=== PATIENT | male | born 1955 | race Caucasian/White ===

== ENCOUNTER → 2020-01-29 | Outpatient (CLI) | payer BC ==
--- NOTE | 2020-01-29 16:00 | CTL ---
EXAMINATION TYPE: CT Low Dose Lung DATE OF EXAM ORDERED: 01/29/2020 HISTORY: . Lung cancer screening CT DLP: 83 mGycm Automated exposure control for dose reduction was used. SCREENING VISIT: Initial COMPARISON: None TECHNIQUE: Low dose computed tomography scan was performed through the chest at 1 mm thick sections a nd reconstructed images in the coronal plane at [address] DIAGNOSTIC QUALITY: Limited, but interpretable FINDINGS: LUNG NODULES: Present, detailed below: There is a 0.3 cm peripheral based nodule within the left upper lung field. Series 5 image 74 LUNGS: COPD: Severity: None Fibrosis: Severity: None Lymph nodes: None Other findings: RIGHT PLEURAL SPACE: Effusion: None Calcification: None Thickening: None Pneumothorax: None LEFT PLEURAL SPACE: Effusion: None Calcification: None Thickening: None Pneumothorax: None HEART: Heart Size: Normal Coronary calcification: Mild Pericardial effusion: None OTHER FINDINGS: Upper abdomen: Normal Bony thorax: Normal Supraclavicular region: Normal Other: Ascending thoracic aorta at the level the main pulmonary artery is 3.4 cm. The main pulmonary artery at the bifurcation is 2.2 cm. IMPRESSION: 1. Benign findings FOLLOW UP CT CHEST RECOMMENDATION: Follow-up low-dose CT chest [address] LUNG RAD: 2
== END | disposition home or self-care (01) ==
LOC: RADCTMAIN 10:32
PROVIDERS: ATTEND Family Medicine
DX: Z12.2 Encounter for screening for malignant neoplasm of respiratory organs (principal); F17.210 Nicotine dependence, cigarettes, uncomplicated

== ENCOUNTER → 2020-04-04 | Outpatient (CLI) | payer BC ==
--- NOTE | 2020-04-04 22:19 | MR ---
EXAMINATION TYPE: MR margaret/lsisreal wo con DATE OF EXAM: 04/04/2020 COMPARISON: Low-dose lung screening CT January 29, 2020 HISTORY: Mid and lower back pain, BLE radic TECHNIQUE: Multiplanar, multisequence imaging of the thoracic and lumbar spine are performed without IV contrast. FINDINGS: T-SPINE: FINDINGS: Spinal cord shows normal course, caliber, and signal as it courses the thoracic spine. Meghan tebral body heights remain satisfactory. There is dextroconvex scoliosis centered in the upper lumbar spine redemonstrated. Disc space heights fairly well maintained. Bone marrow signal intensity is pre served. Mild to moderate multilevel anterior spurring. Small posterior disc herniation effaces anteri or thecal sac at T8-T9 and T9-T10 levels along with T11-T12 and T12-L1 levels. Bone marrow signal int ensity is preserved. Review of the axial images show additional left paracentral disc protrusion effacing the anterolatera l thecal sac at T7-T8 level image 17 series 601. There is also mild to moderate facet arthropathy an d ligamentum flavum hypertrophy at T11-T12 and T12-L1 levels. IMPRESSION: Scoliotic curvature with mild to moderate multilevel degenerative changes mid to lower th oracic spine as detailed above. LUMBAR SPINE: Sagittal images of the lumbar spine show vertebral body heights to appear satisfactory. There is reac tive levoconvex scoliosis centered at lumbosacral junction. Alignment is straightened on sagittal mike ges. Slight grade 1 retrolisthesis L2 on L3 and L3 on L4. Multilevel disc desiccation with mild to mo derate multilevel disc space narrowing. [id number]-[id number] multilevel anterior spurring The conus medu llaris is somewhat high in position ending at superior T12 levels. Some heterogeneous motor type II e ndplate changes involving the right L5-S1 level. Axial images at T12-L1 shows left paracentral disc protrusion effacing and T12 thecal sac and mild-to -moderate facet degenerative changes and ligamentum flavum hypertrophy bilaterally. Axial images at L1-L2 level [id number] broad disc bulge effacing anterolateral thecal sac with mild left-sided facet arthropathy causing [id number]-[id number] left-sided neural foraminal narrowing. Axial images at L2-L3 level show moderate broad disc bulge with left paracentral disc protrusion comp onent and whoq-cl-lwhbbtty facet degenerative changes and ligament flavum hypertrophy bilaterally. Th ere is effacement of the left anterolateral thecal sac and posterior lateral thecal sac bilaterally, there is moderate to severe left and mild right-sided neural foraminal narrowing. Axial images at L3-L4 level show spondylolisthesis with moderate broad-based disc protrusion and mild to moderate right greater than left facet arthropathy. There is moderate right without significant l eft-sided neural foraminal narrowing. Axial images at L4-L5 level show mild to moderate right greater than left facet arthropathy. There is mild broad disc bulge with annular tear. There is right foraminal disc protrusion component. Patent left-sided neural foramina. Moderate right-sided neural foraminal narrowing. Axial images at L5-S1 level show mild/moderate facet degenerative changes bilaterally. There is right paracentral spur disc complex effacing anterolateral thecal sac. There is moderate bilateral neural foraminal narrowing. There is asymmetric mild to moderate right paraspinal muscular atrophy particularly lateral muscles n oted. IMPRESSION: Scoliosis and multilevel degenerative changes as detailed above.
== END | disposition home or self-care (01) ==
LOC: RADMRIMAIN 09:39
PROVIDERS: ATTEND Nurse Practitioner Family
DX: M47.814 Spondylosis without myelopathy or radiculopathy, thoracic region (principal); M47.816 Spondylosis without myelopathy or radiculopathy, lumbar region; M41.84 Other forms of scoliosis, thoracic region; M41.86 Other forms of scoliosis, lumbar region
CPT/HCPCS: 72146; 72148

== ENCOUNTER → 2020-05-24 | Outpatient (CLI) | payer BC ==
--- NOTE | 2020-05-24 18:08 | MR ---
EXAMINATION TYPE: MR knee RT wo con DATE OF EXAM: 05/24/2020 COMPARISON: No radiographic correlation available HISTORY: 64-year-old male M25.561, Right knee pain and swelling for a few years. TECHNIQUE: Multiplanar, multisequence imaging of the right knee is performed without IV contrast. FINDINGS: ACL, PCL, MCL, and LCL complex are intact. Trace fluid seen along the popliteus tendon sheath. There is complex multidirectional tear involving the posterior horn and body of the medial meniscus w ith mild extrusion of the meniscal body. Focal subchondral cystic change and mild marrow edema along the peripheral lip of the medial tibial p lateau suggesting focal severe osteoarthritic change. Otherwise, there is mild diffuse thinning of ti bial articular cartilage in the medial compartment. Large horizontal cleavage tear involving the body of the lateral meniscus with tear extending into emily th the anterior and posterior horns. There is a complex tear meniscal cyst along the lateral peripher al margin measuring 1.6 x 0.6 cm on coronal image. Mild diffuse thinning of lateral compartment artic ular cartilage. Mild thinning of patellofemoral compartment articular cartilage without any high-grade chondral defec t seen. Mild edema within the suprapatellar fat pad. Trace physiologic joint fluid. A small Villalobos cyst is demonstrated. Extensor mechanism is intact. Trace effusion thickening the prepatellar bursa by 3 mm. Normal popliteal artery anatomy. Mild diminished muscle bulk. No suspicious bone marrow replacement o therwise seen. IMPRESSION: 1. Large horizontal cleavage tear extending throughout the lateral meniscus. 2. Complex multidirectional tear involving the posterior horn and body of the medial meniscus. There is an associated focal 1.8 x 1.1 cm area of severe degenerative change involving the peripheral lip o f the medial tibial plateau with underlying reactive marrow signal changes. 3. Trace prepatellar bursitis thickened by 3 mm. 4. Mild edema within the suprapatellar fat pad may be seen with fat pad impingement syndrome. Clinica lly correlate. 5. Small Villalboos's cyst.
== END | disposition home or self-care (01) ==
LOC: RADMRIMAIN 10:48
PROVIDERS: ATTEND Nurse Practitioner Family
DX: S83.281A Other tear of lateral meniscus, current injury, right knee, initial encounter (principal); S83.241A Other tear of medial meniscus, current injury, right knee, initial encounter; M71.21 Synovial cyst of popliteal space [Baker], right knee; M17.11 Unilateral primary osteoarthritis, right knee

== ENCOUNTER 2020-06-01 09:24 | Day surgery (SDC) | payer BC ==
[2020-05-30 15:02] VITALS: BMI 25.2
[~2020-06-01 09:24] MED LIST: LACTATED RINGERS 1,000 ML IV SCH; LIDOCAINE 1% (10MG/ML) FOR IV START INTRADERMA PRN
[2020-06-01 10:27] VITALS: TEMP 98
[2020-06-01] MEDS ORDERED: PROPOFOL 10 MG/ML 20 ML VIAL IV ONE (10:36)
--- NOTE | 2020-06-01 10:55 | P.PCN ---
Date of Procedure: 06/01/20 Procedure(s) Performed: BRIEF HISTORY: Patient is a 64-year-old pleasant white male scheduled for an elective colonoscopy as a part of evaluation of positive cologuard. PROCEDURE PERFORMED: Colonoscopy. PREOPERATIVE DIAGNOSIS: Positive cologuard. IV sedation per Anesthesia. PROCEDURE: After informed consent was obtained, the patient, was brought into the endoscopy unit. IV sedation was administered by Anesthesia under continuous monitoring. Digital rectal examination was normal. Initially the Olympus CF-160 flexible video colonoscope was then inserted in the rectum, gradually advanced into the cecum without any difficulty. Careful examination was performed as the scope was gradually being withdrawn. Ileocecal valve and the appendiceal orifice were visualized and appeared normal. Prep was excellent. Mucosa of the cecum, ascending colon, transverse colon, descending colon, sigmoid colon, and rectum appeared normal. Scattered sigmoid diverticulosis. Retroflexion was performed in the rectum and no lesions were seen. The patient tolerated the procedure well. IMPRESSION: Normal-appearing colon from rectum to cecum with no evidence of colorectal neoplasia . Scattered sigmoid diverticulosis. RECOMMENDATIONS: Findings of this examination were discussed with the patient well as his family.. He was advised to have a repeat screening colonoscopy in 10 years.
[2020-06-01 11:14] VITALS: RESP 12
[2020-06-01 11:22] VITALS: BP 108/65; PULSE 81
== END 2020-06-01 11:40 | disposition home or self-care (01) ==
LOC: ORWHC2ENDO 09:24
PROVIDERS: ATTEND Internal Medicine Gastroenterology
DX: K57.30 Diverticulosis of large intestine without perforation or abscess without bleeding (principal); R19.5 Other fecal abnormalities; F17.210 Nicotine dependence, cigarettes, uncomplicated; K21.9 Gastro-esophageal reflux disease without esophagitis; Z98.890 Other specified postprocedural states; K00.0 Anodontia
CPT/HCPCS: 45378; J2704

== ENCOUNTER → 2020-07-15 | Outpatient (CLI) | payer BC ==
[2020-07-15 12:12] LABS: Basophils # (A) 0.1 k/uL (0-0.2); Basophils % (A) 1 %; Eosinophils # (A) 0.1 k/uL (0-0.7); Eosinophils % (A) 1 %; HCT 46.9 % (39.0-53.0); HGB 15.8 gm/dL (13.0-17.5); Lymphocytes # (A) 2.2 k/uL (1.0-4.8); Lymphocytes % (A) 30 %; MCH 31.5 pg (25.0-35.0); MCHC 33.8 g/dL (31.0-37.0); MCV 93.1 fL (80.0-100.0); Mean Platelet Volume 6.5; Monocytes # (A) 0.4 k/uL (0-1.0); Monocytes % (A) 5 %; Neutrophils # (A) 4.6 k/uL (1.3-7.7); Neutrophils % (A) 62 %; Platelet Count 270 k/uL (150-450); RBC 5.03 m/uL (4.30-5.90); RDW 12.7 % (11.5-15.5); WBC 7.4 k/uL (3.8-10.6)
[2020-07-15 12:15] LABS: Potassium 4.9 mmol/L (3.5-5.1)
== END | disposition home or self-care (01) ==
LOC: LABPAT 10:39
PROVIDERS: ATTEND Orthopaedic Surgery
DX: Z01.818 Encounter for other preprocedural examination (principal); M23.91 Unspecified internal derangement of right knee
CPT/HCPCS: 36415; 80051; 85025; 93005

== ENCOUNTER 2020-08-03 10:08 | Day surgery (SDC) | payer BC ==
[2020-08-02 09:16] VITALS: BMI 25.2
--- NOTE | 2020-08-02 14:47 | HP ---
HISTORY AND PHYSICAL REASON FOR ADMISSION: Surgery 08/03/2020 HISTORY OF PRESENT ILLNESS: Marty Marquez is a 64-year-old gentleman seen with progressive right knee pain. We discussed options for treatment. He elected to proceed with arthroscopy. Consent was obtained. PAST MEDICAL HISTORY: Noncontributory. PAST SURGICAL HISTORY: Herniorrhaphy. DAILY MEDICATIONS: None. ALLERGIES: NONE REPORTED. SOCIAL HISTORY: Smokes 1 pack of cigarettes daily. PHYSICAL EVALUATION OF THE RIGHT KNEE: Range of motion zero to 130. Mild effusion. Tenderness along the medial and lateral joint lines. Positive medial Annabella's. Positive lateral Annabella's. Ligaments stable. Hip rotation without pain. Distal neurovascular exam intact. RADIOGRAPHS: Right knee radiographs reveal some mild osteoarthritis. MRI of the right knee revealed complex meniscal tears. IMPRESSION: Internal derangement of right knee with meniscal tears. PLAN: Right knee arthroscopy with partial meniscectomy and debridement. Surgery scheduled for 08/03/2020. MMODL / IJN: [id number] /
[2020-08-03] MEDS ORDERED: ONDANSETRON 4 MG/2 ML VIAL ONE ×2 (10:58→14:34)
[2020-08-03] MEDS ORDERED: LACTATED RINGERS 1,000 ML IV ONE (11:00)
[2020-08-03] MEDS ORDERED: ONDANSETRON 4 MG/2 ML VIAL IVP ONE ×2 (11:09→14:37)
[2020-08-03] MEDS ORDERED: DEXAMETHASONE SOD PHOSPHATE 4 MG/ML 1 ML VIAL IVP ONE (11:09)
[2020-08-03] MEDS ORDERED: NEOSTIGMINE 1 MG/ML 10 ML VIAL ONE (11:15)
[2020-08-03] MEDS ORDERED: MIDAZOLAM 2 MG/2 ML VIAL ONE (11:15)
[2020-08-03] MEDS ORDERED: GLYCOPYRROLATE 0.2 MG/ML 2 ML VIAL ONE (11:15)
[2020-08-03] MEDS ORDERED: HYDROmorphone (PF) 1 MG/ML ONE (11:15)
[2020-08-03] MEDS ORDERED: SUCCINYLCHOLINE CHLORIDE 100 MG/5 ML SYR IV ONE (11:15)
[2020-08-03] MEDS ORDERED: ROCURONIUM 10 MG/ML (5 ML VIAL) IV ONE (11:15)
[2020-08-03] MEDS ORDERED: fentaNYL (PF) 50 MCG/ML 2 ML AMP ONE (11:15)
[2020-08-03] MEDS ORDERED: PROPOFOL 10 MG/ML 20 ML VIAL IV ONE (11:15)
[2020-08-03] MEDS ORDERED: BUPIVACAINE (PF) 0.25% 30 ML VIAL INTRAARTIC ONE (11:20)
--- NOTE | 2020-08-03 12:31 | P.OP ---
Date of Procedure: 08/03/20 Preoperative Diagnosis: Internal derangement right knee Postoperative Diagnosis: 1. Tear medial and lateral meniscus right knee 2. Reactive synovitis medial, lateral and suprapatellar compartments right knee Procedure(s) Performed: 1. Arthroscopic partial medial and lateral meniscectomy right knee 2. Arthroscopic partial synovectomy medial, lateral and suprapatellar compartments right knee Anesthesia: PRABHAKARA, local Surgeon: Farhat Wilson Estimated Blood Loss (ml): 8 Pathology: none sent Condition: stable Disposition: PACU Indications for Procedure: 64-year-old patient seen with progressive right knee pain. After treatment options were discussed, he elected to proceed with arthroscopy. Operative Findings: see description of procedure Description of Procedure: Patient was taken to the operative suite. Patient underwent a general anesthetic by the department of anesthesia. Patient was given preoperative antibiotics. The right lower extremity was placed in a well-padded arthroscopic leg perry. The right leg was prepped and draped in the normal sterile orthopedic fashion. A lateral parapatellar and suprapatellar incision was made. Trochars were inserted. Arthroscopy was initiated. Suprapatellar pouch revealed diffuse thick reactive synovitis. The patellofemoral joint appeared to articulate congruently. There was grade 1 chondromalacia of the patella. The scope was guided into the medial gutter. No loose bodies or plica were identified. The scope was then guided into the medial compartment. A medial parapatellar incision was made. Trocar inserted followed by probe. There was a complex tear involving the posterior horn of the medial meniscus. There was thick reactive synovitis anteriorly. There were grade 1 chondromalacia changes about the medial compartment. I performed a partial medial meniscectomy getting down to stable meniscal tissue. I performed a partial synovectomy decompressing reactive synovitis anteriorly. The residual meniscus was stable. There was good decompression of the synovitis. The scope and probe were then guided into the intercondylar notch. Cruciates were identified, probed and found to be stable. The scope and probe were then guided into lateral compartment. There was a complex tear involving the anterior mid body and posterior horn lateral meniscus. There was thick reactive synovitis anteriorly. I performed a partial lateral meniscectomy getting down to stable meniscal tissue. I performed a partial synovectomy decompressing the reactive synovitis. The residual meniscus was stable. There was good decompression of the synovitis. The scope was in guided back into the suprapatellar compartment. I introduced a motorized shaver into the super compartment. I debrided some piecemeal fragments of meniscus I encountered. I performed a partial synovectomy. The shaver was removed. There was good decompression of the synovitis. I took one more look on the entire knee, no residual debris.Instruments were now removed from the joint. The joint was infiltrated with .25% Marcaine. Steri-Strips were applied to the portal sites. Sterile dressings were applied. The patient was placed into a RODERICK hose. No tourniquet was utilized. The patient was awakened, transferred to a bed and taken to recovery stable satisfactory condition.
[2020-08-03 12:32] VITALS: TEMP 96.9
[2020-08-03] MEDS ORDERED: HYDROmorphone 0.5 MG/0.5 ML SYRINGE IVP ONE ×2 (12:35→12:44)
[2020-08-03] MEDS ORDERED: HYDROcodone/APAP 5-325MG 1 EACH TAB ONE (13:35)
[2020-08-03] MEDS ORDERED: HYDROcodone/APAP 5-325MG 1 EACH TAB PO ONE (13:38)
[2020-08-03 13:45] VITALS: RESP 16
[2020-08-03 14:19] VITALS: BP 127/73; PULSE 59
== END 2020-08-03 14:55 | disposition home or self-care (01) ==
LOC: OR 10:08
PROVIDERS: ATTEND Orthopaedic Surgery
DX: M23.221 Derangement of posterior horn of medial meniscus due to old tear or injury, right knee (principal); M23.251 Derangement of posterior horn of lateral meniscus due to old tear or injury, right knee; M22.41 Chondromalacia patellae, right knee; M65.861 Other synovitis and tenosynovitis, right lower leg; Z98.890 Other specified postprocedural states; F17.210 Nicotine dependence, cigarettes, uncomplicated
CPT/HCPCS: 29880; J2250; J1100; J2710; J0690; J2405; J3010; J1170 ×2; J0330; J2704

== ENCOUNTER → 2020-08-15 | Outpatient (CLI) | payer BC ==
--- NOTE | 2020-08-15 11:27 | XR ---
EXAMINATION TYPE: XR scoliosis survey DATE OF EXAM: 08/15/2020 COMPARISON: NONE HISTORY: Scoliosis TECHNIQUE: 4 imaged scoliosis series with frontal and lateral views of the thoracolumbar spine. FINDINGS: Vertebral body heights are preserved. There is dextroscoliosis of the thoracolumbar spine. There is m ultilevel endplate sclerosis and osteophytosis of the thoracolumbar spine with lower lumbar facet art hropathy of the lumbar spine. IMPRESSION: Dextroscoliosis with multilevel disc disease and osteoarthritic changes.
== END | disposition home or self-care (01) ==
LOC: RADXRMAIN 10:24
PROVIDERS: ATTEND Orthopaedic Surgery
DX: M41.9 Scoliosis, unspecified (principal)
CPT/HCPCS: 72082

== ENCOUNTER 2020-09-06 11:07 | Day surgery (SDC) | payer BC ==
[2020-09-05 11:32] VITALS: BMI 25.7
[~2020-09-06 11:07] MED LIST changes: -LIDOCAINE 1% (10MG/ML) FOR IV START INTRADERMA PRN
[2020-09-06 11:32] VITALS: RESP 16; TEMP 97.3
[2020-09-06] MEDS ORDERED: LIDOCAINE 1% (10MG/ML) FOR IV START INTRADERMA ONE (11:40)
[2020-09-06] MEDS ORDERED: TRIAMCINOLONE ACETONIDE 40 MG/ML 1 ML VIAL ONE (12:25)
[2020-09-06] MEDS ORDERED: fentaNYL (PF) 50 MCG/ML 2 ML AMP ONE (12:25)
[2020-09-06] MEDS ORDERED: IOPAMIDOL M200 10 ML VIAL ONE (12:25)
[2020-09-06] MEDS ORDERED: MIDAZOLAM 2 MG/2 ML VIAL ONE (12:25)
[2020-09-06] MEDS ORDERED: ROPIVACAINE 5MG/ML 20ML VIAL ONE (12:25)
--- NOTE | 2020-09-06 12:40 | P.PCN ---
Date of Procedure: 09/06/20 Surgeon: Rama Parisi Pathology: none sent Condition: stable Disposition: PACU Description of Procedure: PREOPERATIVE DIAGNOSIS: 1-lumbar stenosis 2- Lumber Degenerative Disc Diseases. POSTOPERATIVE DIAGNOSIS: 1-lumbar stenosis 2-Lumbar Degenerative Disc Diseases PROCEDURE 1. Lumbar epidural steroid injection under fluoroscopic guidance at the L2-3 level in the left paramedian approach . 2. Lumbar epidurogram. ANESTHESIA: Local with 1% lidocaine; and IV moderate conscious sedation with Versed and fentanyl EBL: Minimal PROCEDURE INDICATION: The patient with low back pain and radiculitis symptoms unresponsive to conservative treatment. Fluoroscopy was used to optimize visualization of the needle placement and to maximize safety. PROCEDURE DESCRIPTION / TECHNIQUE: The patient was seen and identified in the preoperative area. Risks, benefits, complications including but not limited to infections ,bleeding ,allergic reaction to the medications ,nerve damage and not complete pain relief , and alternatives were discussed with the patient. The patient agreed to proceed with the procedure and signed the consent. IV was started, and vital signs were stable. Patient was taken to the OR and time out was completed. The patient was placed in the prone position on procedure table and a pillow was placed under the abdomen to reduce lumbar lordosis. The lumbosacral area was prepped and draped in the usual sterile fashion with ChloraPrep.Patient was closely monitored during the procedure. Conscious sedation was used during the procedure to decrease patients anxiety. Vital signs were monitered during the entire procedure. Using anterior-posterior fluoroscopy, the L2-3 interlaminar space was identified and the skin over this site was marked and then infiltrated with 1% lidocaine subcutaneously. Subsequently, a 20-gauge Tuohy epidural needle was inserted and advanced toward the epidural space using the Loss of resistance to air technique and guided by AP and lateral fluoroscopy. The correct needle position in the epidural space was verified with the injection of 1 mL of the water soluble contrast dye Omnipaque 180 contrast and observing an excellent epiduro gram with the epidural spread of the dye, after negative aspiration for blood and CSF and in the absence of paresthesias. Again after negative aspiration, a 8 ml mixture containing 80 mg of Kenalog and 5 ml of preservative free Normal Saline, and 2 ml of preservative free ropivacaine 0.5% solution was injected and a washout of epidurogram was seen. Needle was withdrawn intact, skin was cleansed, and bandages were applied. patient tolerated procedure well and was transferred to PACU in stable condition.A copy of the needle placement picture was saved to the fluoroscopy machine. The patient has severe thoracolumbar scoliosis. COMPLICATIONS: None DISPOSITION / PLANS: The patient was placed in a supine position and transferred to the recovery area in a stable condition for observation. There was no evidence of lower extremity motor or sensory deficit after the procedure. Patient was discharged from the recovery room after meeting discharge criteria. Home discharge instructions were given to the patient by the staff. The patient was reexamined prior to discharge. The patient will schedule a follow up in the clinic in 2-4 weeks.
[2020-09-06] MEDS ORDERED: IV FLUID CONTINUATION 1,000 ML IV ONE (12:43)
[2020-09-06 12:47] VITALS: BP 136/35; PULSE 55
--- NOTE | 2020-09-06 17:03 | FL ---
Fluoroscopy HISTORY: Pain 4 seconds fluoroscopy time supplied to the referring clinician. 2 intraoperative C-arm images docume nt the procedure. See dictated report from anesthesia.
== END 2020-09-06 13:17 | disposition home or self-care (01) ==
LOC: ORPAIN 11:07
PROVIDERS: ATTEND Anesthesiology
DX: M48.061 Spinal stenosis, lumbar region without neurogenic claudication (principal); M51.16 Intervertebral disc disorders with radiculopathy, lumbar region; F17.200 Nicotine dependence, unspecified, uncomplicated; G47.33 Obstructive sleep apnea (adult) (pediatric)
CPT/HCPCS: 62323; J2250; J3301; J3010; Q9966; J2795; 99152

== ENCOUNTER 2020-10-06 08:24 | Day surgery (SDC) | payer BC ==
[2020-10-05 09:46] VITALS: BMI 25.1
[2020-10-06 08:55] VITALS: TEMP 97.8
[2020-10-06] MEDS ORDERED: LACTATED RINGERS 1,000 ML IV ONE (08:55)
[2020-10-06] MEDS ORDERED: methylPREDNISolone ACETATE 40 MG/ML 1 ML VIAL ONE (09:38)
[2020-10-06] MEDS ORDERED: fentaNYL (PF) 50 MCG/ML 2 ML AMP ONE (09:38)
[2020-10-06] MEDS ORDERED: IOPAMIDOL M200 10 ML VIAL ONE (09:38)
[2020-10-06] MEDS ORDERED: MIDAZOLAM 2 MG/2 ML VIAL ONE (09:38)
--- NOTE | 2020-10-06 09:49 | P.PCN ---
Date of Procedure: 10/06/20 Procedure(s) Performed: PREOPERATIVE DIAGNOSIS: 1- Lumbar Degenerative Disc Diseases 2-Lumbar spondylosis with Facet arthropathy without myelopathy POSTOPERATIVE DIAGNOSIS: Same as preop diagnosis. PROCEDURE 1. Lumbar epidural steroid injection under fluoroscopic guidance at the L2-3 level. (Fluoroscopy imaging was available in radiology department) 2. Lumbar epidurogram. ANESTHESIA: Local with 1% lidocaine 3 ml and , moderate sedation with intravenous Versed 2 mg ,and fentanyle 50 Mcg EBL: Minimal PROCEDURE INDICATION: The patient with low back pain and radiculitis symptoms unresponsive to conservative treatment. Fluoroscopy was used to optimize visualization of the needle placement and to maximize safety. PROCEDURE DESCRIPTION / TECHNIQUE: The patient was seen and identified in the preoperative area. Risks, benefits, complications including but not limited to infections ,bleeding ,allergic reaction to the medications ,nerve damage and not complete pain releife , and alternatives were discussed with the patient. The patient agreed to proceed with the procedure and signed the consent. IV was started, and vital signs were stable. Patient was taken to the OR and time out was completed. The patient was placed in the prone position on procedure table and a pillow was placed under the abdomen to reduce lumbar lordosis. The lumbosacral area was prepped and draped in the usual sterile fashion.ere closely monitored during the procedure. Co nscious sedation was used during the procedure to decrease patients anxiety. Vital signs was monitered during the entire procedure. Using anterior-posterior fluoroscopy, the L2-3 interlaminar space was identified and the skin over this site was marked and then infiltrated with 1% lidocaine subcutaneously. Subsequently, a 20-gauge Tuohy epidural needle was inserted and advanced toward the epidural space using the ``Loss of resistance technique and guided by AP and lateral fluoroscopy. The correct needle position in the epidural space was verified with the injection of 2 mL of the water soluble contrast dye Isovue 200 contrast and observing an excellent epidurogram with the epidural spread of the dye, after negative aspiration for blood and CSF and in the absence of paresthesias. Again after negative aspiration, a 6 ml mixture containing 80 mg of Depo-medrol , and 2 ml of preservative free Normal Saline, and 2 ml of preservative free lidocaine 1% solution was injected and a washout of epidurogram was seen. Needle was withdrawn intact, skin was cleansed, and bandages were applied. COMPLICATIONS: None DISPOSITION / PLANS: The patient was placed in a supine position and transferred to the recovery area in a stable condition for observation. There was no evidence of lower extremity motor or sensory deficit after the procedure. Patient was discharged from the recovery room after meeting discharge criteria. Home discharge instructions were given to the patient by the staff. The patient was reexamined prior to discharge. The patient will schedule a follow up in the clinic in 2-4 weeks.
[2020-10-06] MEDS ORDERED: IV FLUID CONTINUATION 1,000 ML IV ONE (09:58)
[2020-10-06 10:18] VITALS: BP 117/70; PULSE 53; RESP 18
--- NOTE | 2020-10-06 12:29 | FL ---
EXAMINATION TYPE: FL guided pain mgmt statistic DATE OF EXAM: 10/06/2020 FLUOROSCOPY Fluoroscopy time of 2 seconds was used during lumbar epidural injection. 1 image/s document/s the pr josh.
== END 2020-10-06 10:45 | disposition home or self-care (01) ==
LOC: ORPAIN 08:24
PROVIDERS: ATTEND Specialist
DX: M51.36 Other intervertebral disc degeneration, lumbar region (principal); M47.816 Spondylosis without myelopathy or radiculopathy, lumbar region
CPT/HCPCS: 62323; J2250; J1030; J3010; Q9966

== ENCOUNTER → 2020-10-26 | Outpatient (CLI) | payer BC ==
[2020-10-26 10:15] VITALS: BP 125/71; PULSE 61; RESP 18; TEMP 98.4
--- NOTE | 2020-10-26 10:47 | P.PN ---
Subjective Progress Note Date: 10/26/20 This is a follow-up visit for this 65 years old male with a chronic history of severe low back pain, as diagnosed with lumbar degenerative disc disease and lumbar spondylosis with lumbar facet arthropathy previously we have done lumbar epidural steroid injections at L2-3 levels 2, she reported that he had minimal benefit from and he continued to have severe low back pain the pain increases with any activity interfering with her quality of life, he feels some weakness in his lower extremity his pain is constant and increases with any movement, and is any fever or night sweats he denies any change in bowel movement or urination Objective - Vital Signs Vital signs: Vital Signs Temp 98.4 F 10/26/20 10:10 Pulse 61 10/26/20 10:10 Resp 18 10/26/20 10:10 BP 125/71 10/26/20 10:10 Pulse Ox 97 10/26/20 10:10 - Exam Physical Examinations : -Constitutiona : Cooperative , not in acute distress . -HEENT : nech : supple , no Lymphadenopathy , normal thyroid size . : eyes : no ptosis , no icterus, no photophobia . - neurologic : Cranial nerve II to XII intact , no focal neurological deffecit . -psychatric : alert , oriented X 3 , appropriate affect , intact judgment and insight . -Lymphatic : no Lymphadenopathy . - musculoskeltal : Lumber spine moter stegnth lower extremities ,thigh and legs 5/5 Right side , 5/5 Left side deep tendon reflexes : normal Knee Jerk , normal ankle Jerk lumber facet Loading Test =positive Right , positive Left Range of motion of the lumbar spine Flexion 30 degrees, extension 10 degrees strait leg raising test = positive at 30 degree Fabere test= positive Right , and positive LT . tenderness over the Sacroiliac joint on the Right , and Left sides Assessment and Plan Plan: Assessment and plan=1-lumbar degenerative disc disease . 2-lumbar spondylosis with lumbar facet arthropathy. he had lumbar epidural steroid injections at the L2 3 level with instability continued to have severe low back pain he follow-up and Dr. Hogue for evaluation Time with Patient: Less than 30
== END | disposition home or self-care (01) ==
LOC: PNWHC3 09:47
PROVIDERS: ATTEND Specialist
DX: M51.36 Other intervertebral disc degeneration, lumbar region (principal); M47.816 Spondylosis without myelopathy or radiculopathy, lumbar region; M46.96 Unspecified inflammatory spondylopathy, lumbar region
CPT/HCPCS: 99211

== ENCOUNTER → 2023-09-02 | Outpatient (CLI) | payer MEDICARE ==
[2023-09-02 14:34] LABS: African American GFR (CKD) >90 (>60 ml/min/1.73 sqM); Blood Urea Nitrogen 11 mg/dL (9-20); Non-African American GFR(CKD) >90 (>60 ml/min/1.73 sqM)
--- NOTE | 2023-09-02 16:36 | CT ---
EXAMINATION TYPE: CT abdomen pelvis w con DATE OF EXAM: 09/02/2023 COMPARISON: None HISTORY: left sided abdominal/rib pain CT DLP: 464.2 mGycm Automated exposure control for dose reduction was used. TECHNIQUE: Helical acquisition of images was performed from the lung bases through the pelvis. CONTRAST: Performed with Oral Contrast and with IV Contrast, patient injected with 100ml mL of Isovue 300. FINDINGS: The lung bases are clear. The gallbladder is normal without distention, wall thickening, pericholecystic fluid or gallstones. T here is no biliary ductal dilatation. There is no focal mass or organomegaly involving the liver, pancreas, spleen or adrenal glands. There is no solid renal mass or hydronephrosis and there is homogeneous contrast enhancement of the r enal parenchyma. The caliber the abdominal aorta is normal is no retroperitoneal adenopathy or hemorr neelima. The bowel loops are normal in caliber and there is no evidence of dilatation or obstruction. No infla mmatory changes are identified in the bowel wall or mesentery. There is no free intraperitoneal air or fluid. No pelvic mass, free fluid, abscess or adenopathy. There is mild prostatic hypertrophy There is moderate to marked rotoscoliosis of the thoracolumbar spine with moderate degenerative disc disease at multiple levels. There is no focal osseous abnormality.. IMPRESSION: No acute changes within the abdomen or pelvis.
== END | disposition home or self-care (01) ==
LOC: RADCTMAIN 13:36
PROVIDERS: ATTEND Family Medicine
DX: R10.9 Unspecified abdominal pain (principal)
CPT/HCPCS: 82565; 84520; 74177; 36415; Q9967

== ENCOUNTER → 2024-03-23 | Outpatient (CLI) | payer MEDICARE | END | disposition home or self-care (01) | LOC: RADUSWWP 14:47 | PROVIDERS: ATTEND Family Medicine | DX: Z53.9 Procedure and treatment not carried out, unspecified reason (principal) ==

== ENCOUNTER → 2024-03-27 | Outpatient (CLI) | payer MEDICARE ==
[2024-03-27 09:15] LABS: African American GFR (CKD) 84 (>60 ml/min/1.73 sqM); Blood Urea Nitrogen 23 mg/dL (9-20); Non-African American GFR(CKD) 73 (>60 ml/min/1.73 sqM)
--- NOTE | 2024-03-27 10:16 | CT ---
EXAMINATION TYPE: CT ChestAbdPelvis w con CT DLP: 582.90 mGycm, Automated exposure control for dose reduction was used. DATE OF EXAM: 03/27/2024 9:49 AM COMPARISON: CT abdomen and pelvis 09/02/2023, CT low-dose lung 01/29/2020 CLINICAL INDICATION:Male, 68 years old with history of R91.8 ABN FINDING OF LUNG FIELD; [facility], Technique: Multiple axial images of the chest, abdomen, and pelvis were obtained following the intrav enous administration of 100 mL Isovue-300. Two-dimensional coronal and sagittal reconstructions were obtained. Findings: CHEST: LUNGS/ PLEURA: No pleural effusion or pneumothorax. Mild centrilobular emphysematous changes. Minima l biapical pleural-parenchymal scarring. Anterior left upper lobe 3.2 x 2.8 cm pulmonary mass (series 3, image 13). This extends towards the pleura. AIRWAY: Patent and unremarkable.. HEART: Size within normal limits.No pericardial effusion. Coronary artery calcifications. MEDIASTINUM: AP window enlarged lymph nodes with largest measuring 1.3 cm short axis (series 3, image 29). VASCULATURE: No aortic aneurysm. MUSCULOSKELETAL: There is a destructive lucent lesion involving the left scapula with associated path ologic fracture. This measures grossly 1.4 cm with some peripheral enhancing soft tissue. S-shaped sc oliotic curvature of the thoracolumbar spine. SOFT TISSUES/LYMPH NODES: Unremarkable. LOWER NECK: No significant findings. ABDOMEN: ABDOMEN LIVER: Multiple new bilobar hypodense ill-defined lesions identified. Largest within the left hepatic lobe measures up to 3.8 cm (series 3, image 66). Largest within the right hepatic lobe inferiorly me asures up to 2.9 cm (series 3, image 86). Stable subcentimeter probable cyst within the posterior rig ht hepatic lobe. GALLBLADDER AND BILE DUCTS: Unremarkable. PANCREAS: Unremarkable. SPLEEN: Stable benign appearing cystic subcentimeter lesion within the anterior spleen with periphera l calcifications. ADRENAL GLANDS: Unremarkable. KIDNEYS AND URETERS: No evidence of hydronephrosis or renal calculus. The kidneys enhance symmetrical ly. Contrast is demonstrated within both collecting systems on the delayed phase. PELVIS BLADDER: Unremarkable REPRODUCTIVE: Coarse calcifications of the prostate gland are identified. Prostate gland is enlarged measuring 5.8 cm in transverse dimension. ABDOMEN & PELVIS STOMACH AND BOWEL: Stomach and duodenum are unremarkable. Distal colonic diverticulosis without evide nce for acute diverticulitis. No focal bowel wall thickening or surrounding inflammatory changes. No evidence of bowel obstruction. PERITONEUM/LYMPH NODES: No evidence of pneumoperitoneum or free fluid. New left anterior pelvis irreg ular 1.5 cm soft tissue nodule (series 3, image 109). No other lymphadenopathy identified. VASCULATURE: Mild atherosclerotic calcifications are present throughout the abdominal aorta and its b ranches. MUSCULOSKELETAL: No acute osseous abnormalities. S-shaped scoliotic curvature of the thoracolumbar sp ine. Multilevel degenerative disc disease. SOFT TISSUE/ABDOMINAL WALL: Unremarkable IMPRESSION: 1. Left upper lobe 3.2 cm pulmonary mass with mediastinal adenopathy. Multiple bilobar ill-defined h ypoattenuating lesions and an anterior left pelvic irregular soft tissue nodule. Additional destructi ve lytic lesion involving the left scapula with pathologic fracture. Findings are highly concerning f or primary lung neoplasm with metastasis. 2. Colonic diverticulosis without evidence for acute diverticulitis. [facility], , 03/27/2024 10:13 AM
== END | disposition home or self-care (01) ==
LOC: RADCTMAIN 08:02
PROVIDERS: ATTEND Emergency Medicine
DX: C34.90 Malignant neoplasm of unspecified part of unspecified bronchus or lung (principal); R91.8 Other nonspecific abnormal finding of lung field; R59.0 Localized enlarged lymph nodes; K57.30 Diverticulosis of large intestine without perforation or abscess without bleeding; M84.412A Pathological fracture, left shoulder, initial encounter for fracture; I70.0 Atherosclerosis of aorta
CPT/HCPCS: 82565; 84520; 71260; 74177; 36415; Q9967

== ENCOUNTER 2024-04-22 08:03 | Day surgery (SDC) | payer MEDICARE ==
[2024-04-22 08:56] LABS: Mean Platelet Volume 6.6; Platelet Count 518 k/uL (150-450)
[2024-04-22 09:00] VITALS: RESP 16; TEMP 98.4
[2024-04-22 09:16] LABS: INR 1.2 (<1.2); Prothrombin Time 12.5 sec (10.0-12.5)
[2024-04-22] MEDS: HYDROmorphone 0.5 MG/0.5 ML SYRINGE IVP PRN (10:53)
--- NOTE | 2024-04-22 12:23 | CT ---
EXAMINATION TYPE: CT biopsy liver DATE OF EXAM: 04/22/2024 12:14 PM COMPARISON: 03/27/2024 CLINICAL INDICATION:Male, 68 years old with history of R16.0 HEPATOMEGALY, NOT ELSEWHERE CLASSIFIED; TECHNIQUE: CT guided percutaneous liver biopsy using coaxial method. Total CT dose 710 mGycm. Total fluoroscopy time was seconds. CT DLP: 710.10 mGycm, Automated exposure control for dose reduction was used. FINDINGS: The procedure was explained to the patient including risks of bleeding, bruising, infection, damage t o nearby organs and need for additional therapy including potential surgery. All questions were answ ered and consent was obtained. The previous studies were reviewed. The patient was placed on the CT couch in the supine position. The overlying skin was marked and prepped using sterile method. Timeout was taken per protocol. Follo wing administration of local anesthesia a 17 gauge coaxial needle was introduced on the left hepatic lobe mass. The coaxial needle tip was directed into the mass with CT guidance. Two 18 gauge coaxial biopsies were then obtained. Following the procedure the needle was removed and sterile dressing was applied to the percutaneous site. Post biopsy imaging demonstrated no evidence of hemorrhage. Pa tient was taken for postprocedure observation in stable condition. IMPRESSIONS: Status post percutaneous left liver mass mass biopsy as described above. Pathology results pending. [facility], , 04/22/2024 12:20 PM
[2024-04-22 16:13] VITALS: BP 103/58; PULSE 62
== END 2024-04-22 15:49 | disposition home or self-care (01) ==
LOC: RADPROMAIN 08:03
PROVIDERS: ATTEND Internal Medicine
DX: C78.7 Secondary malignant neoplasm of liver and intrahepatic bile duct (principal)
CPT/HCPCS: 85049; 85610; 36415; 47000; 77012; J1171; 88307; 88341; 88342

== ENCOUNTER → 2024-04-24 | Outpatient (CLI) | payer MEDICARE ==
--- NOTE | 2024-04-26 08:40 | PE ---
EXAMINATION TYPE: PET CT fusion skull to thigh DATE OF EXAM: 04/24/2024 CLINICAL INDICATION:Male, 68 years old with history of R91.8 Lung mass; TECHNIQUE: Following the intravenous administration of 10.54 mCi of F-18 FDG, whole body images are performed from the skull base to the midthigh. Images are reviewed on the computer in the coronal, axial, and sagittal planes. Reconstructed rotating images are created on independent workstation and reviewed on the computer. A non-contrast CT is performed in conjunction with the PET scan. Glucose level 99 mg/dL CT DLP: 388.28 mGycm, Automated exposure control for dose reduction was used. COMPARISON: CT 03/27/2024, 09/02/2023, PET/CT None, MRI: 04/15/2024 FINDINGS: Mediastinal SUV mean is 1.6. Hepatic parenchyma SUV mean is 2.0. SKULL BASE AND NECK: No suspicious radiotracer activity. CHEST, MEDIASTINUM, AND HILAR REGION: Redemonstration of a hypodense anterior left upper lobe pulmonary mass measuring 3.0 x 2.6 cm. There is peripheral FDG activity with central low attenuation possibly representing necrosis. Demonstrates a maximum SUV of 10.2. Multiple prominent and enlarged FDG avid spinal and left hilar lymph nodes. Examples include in AP wi ndow lymph node measuring 1.8 cm with a maximum SUV of 12.8. A right paratracheal lymph node measurin g 1 cm with a maximum SUV of 9.7. A left hilar lymph node with a max SUV of 10.1. ABDOMEN AND PELVIS: Innumerable hypodense FDG avid lesions throughout the liver. Examples include a peripheral right hepa tic lobe lesion with a maximum SUV of 7.1. Additional anterior left hepatic lobe lesion with a maximu m SUV of 7.0. Anterior left pelvic 1.3 cm nodule with a maximum SUV of 2.8. MUSCULOSKELETAL STRUCTURES/SOFT TISSUE: Scattered FDG avid metastasis within the muscle skeletal stru ctures with examples as described below. Focal FDG avid lesion measuring grossly 2.2 cm within the left pectoralis muscle with a maximum SUV o f 6.9. Additional enhancing nodules within the left anterior chest wall subcutaneous tissues. Focal FDG avid lesion within the right infraspinatus muscle with a maximum SUV of 4.8. Mixed lytic/sclerotic lesion involving the T1 vertebral body with extension into the right pedicle an d transverse process. This demonstrates a maximum SUV of 7.7. Mixed lytic/sclerotic lesion within the left scapula with associated pathologic fracture. This demons trates a maximum SUV of 7.0. Few foci of focal radiotracer uptake within the thoracic back musculature. FDG avid expansile left lateral ninth rib lesion with a maximum SUV of 8.4. FDG avid right gluteal subcutaneous tissue nodule. OTHER CT: Patchy mucous debris within the right maxillary sinus with mild mucosal thickening of the i nferior left maxillary sinus. Bilateral carotid bulb calcifications. Scoliotic curvature of the thora columbar spine. IMPRESSION: FDG avid left upper lobe pulmonary mass with innumerable FDG avid metastatic hepatic lesions, FDG carlos d mediastinal/left hilar adenopathy, and scattered FDG avid musculoskeletal/soft tissue lesions as de scribed above. There is pathologic fracture of the left scapula. [facility], , 04/26/2024 8:37 AM
== END | disposition home or self-care (01) ==
LOC: RADPETMAIN 12:31
PROVIDERS: ATTEND Internal Medicine
DX: C78.7 Secondary malignant neoplasm of liver and intrahepatic bile duct (principal); R91.8 Other nonspecific abnormal finding of lung field
CPT/HCPCS: 78815; A9552

== ENCOUNTER → 2024-04-25 | Outpatient (CLI) | payer MEDICARE ==
--- NOTE | 2024-04-27 09:26 | MR ---
EXAMINATION TYPE: MR brain wo/w con DATE OF EXAM: 04/25/2024 3:49 PM COMPARISON: None. CLINICAL INDICATION: Male, 68 years old with history of R42 DIZZINESS AND GIDDINESS R63.4 DIZZINESS A ND GI; PHH, Cancer of liver, lung, lymph node, and shoulder blade, Dizziness TECHNIQUE: Multi planar, multi sequence imaging was performed through the brain including: T1, T2, In version recovery, susceptibility weighted imaging and gradient echo imaging and Diffusion weighted im aging. The patient was then given intravenous contrast and multi planar, T1 fat-saturation images wer e obtained. IV Contrast: 7 mL Gadobutrol FINDINGS: Few scattered areas of enhancing lesions suggestive of metastatic disease with peripheral e nhancement example includes: right occipital lobe 8mm, right posterior frontal/parietal bilobed measu ring up to 9 mm there is at least 4 areas in the cerebellum present bilaterally. The largest in the l eft medial cerebellar hemisphere measuring 20 x 12 mm. The dominguez-white junctions, ventricular system, basal cisterns appear unremarkable. Diffusion-weighted imaging shows no evidence of restricted diffu lesia to suggest acute/subacute infarct. Intracranial arterial flow voids are maintained. Midline stru ctures show no abnormality. The susceptibility weighted images do not reveal any evidence for micro-h emorrhage. Right frontal lobe developmental venous anomaly presents susceptibility weighted imaging. The bone marrow signal is within normal limits. Paranasal sinuses and mastoid air cells: Mild scattered paranasal sinus disease. Visualized orbits: Orbital contents are intact. IMPRESSION: 1. Scattered enhancing partially cystic lesions compatible with metastatic disease and there are at l east 4 within the cerebellum including the largest measuring up to 20 x 12 mm. 2. No evidence of intracranial mass, acute/subacute infarct. 3. Nonspecific white matter changes, likely related to small vessel ischemic disease. 4. Right frontal lobe developmental venous anomaly. [facility], , 04/27/2024 9:23 AM
== END | disposition home or self-care (01) ==
LOC: RADMRIMAIN 14:57
PROVIDERS: ATTEND Internal Medicine
DX: G93.89 Other specified disorders of brain (principal); R42 Dizziness and giddiness; R63.4 Abnormal weight loss; R90.82 White matter disease, unspecified
CPT/HCPCS: 70553; A9585

== ENCOUNTER → 2024-05-14 | Outpatient (CLI) | payer MEDICARE ==
--- NOTE | 2024-05-14 13:41 | US ---
EXAMINATION TYPE: US venous doppler duplex LE BI DATE OF EXAM: 05/14/2024 1:21 PM COMPARISON: NONE CLINICAL INDICATION: Male, 68 years old with history of R60.0 LOCALIZED EDEMA; bilat edema, Pain TECHNIQUE: The lower extremity deep venous system is examined utilizing real time linear array sonog aym with graded compression, color doppler sonography, and spectral doppler. SIDE PERFORMED: Bilateral FINDINGS: VESSELS IMAGED: Common Femoral Vein Deep Femoral Vein Greater Saphenous Vein * Femoral Vein Popliteal Vein Small Saphenous Vein * Proximal Calf Veins (* superficial vessels) Right Leg: Negative for DVT, Color Doppler imaging shows patency of the vessels. Spectral waveforms are within normal limits. Left Leg: Negative for DVT, Color Doppler imaging shows patency of the vessels. Spectral waveforms a re within normal limits. IMPRESSION: No ultrasound evidence for deep venous thrombosis. [facility], , 05/14/2024 1:39 PM
== END | disposition home or self-care (01) ==
LOC: RADUSWWP 12:47
PROVIDERS: ATTEND Emergency Medicine
DX: R60.0 Localized edema (principal)
CPT/HCPCS: 93970

== ENCOUNTER 2024-06-05 13:28 | Day surgery (SDC) | payer MEDICARE ==
[2024-06-04 12:51] VITALS: BMI 18.9
[2024-06-05 15:03] VITALS: RESP 16; TEMP 99.3
[2024-06-05] MEDS: IV FLUID CONTINUATION 1,000 ML IV ONE (15:17)
[2024-06-05] MEDS: LACTATED RINGERS 1,000 ML IV SCH (15:17)
[2024-06-05 15:26] LABS: Glucose,Whole Blood 89 mg/dL (70-110)
[2024-06-05] MEDS ORDERED: LIDOCAINE 1% INJ 10MG/ML (20 ML MDV) ONE (16:09)
[2024-06-05] MEDS ORDERED: PROPOFOL 10 MG/ML 20 ML VIAL IV ONE (16:09)
--- NOTE | 2024-06-05 16:31 | P.PCN ---
Date of Procedure: 06/05/24 Procedure(s) Performed: Brief history: Patient is a pleasant 68-year-old white male scheduled for an elective upper endoscopy as well as colonoscopy as a part of evaluation of epigastric pain, early satiety and progressive weight loss for the last 3 months duration. He was recently diagnosed metastatic non-small cell lung cancer and is following Dr. Giron. He finished radiation therapy yesterday. Recent PET scan showed multiple lesions in the liver and a left upper lobe lung mass. 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 He is scheduled for upper endoscopy as well as colonoscopy to rule out GI primary. Procedure performed: Esophagogastroduodenoscopy Colonoscopy Preoperative diagnosis: Epigastric pain, progressive weight loss and early satiety Metastatic poorly differentiated non-small cell carcinoma of the liver Anesthesia: MAC Procedure: After informed consent was obtained from the patient was brought into the endoscopy unit and IV sedation was administered by anesthesia under continuous monitoring. Initially upper endoscopy was done. The Olympus GF 160 video endoscope was inserted inserted into the mouth and esophagus intubated without any difficulty and was gradually advanced into the stomach and duodenum and carefully examined. The bulb and second part of the duodenum appeared normal. The scope was then withdrawn into the stomach adequately insufflated with air and upon careful examination the antrum and mild gastritis. Mucosa body, cardia and fundus appeared normal. The scope was then withdrawn into the esophagus. The GE junction was located at 40 cm to the incisors. It appeared regular with no erythema erosions or ulcerations. Rest of the esophagus appeared normal. Patient tolerated the procedure well. At this time the patient continued to remain sedation. Initial digital rectal examination was normal. Olympus CF 160 video colonoscope was then inserted into the rectum and gradually advanced to the cecum without any difficulty. Careful examination was performed as the scope was gradually being withdrawn. The prep was excellent. The cecum, ascending colon, transverse colon, descending colon, sigmoid colon and rectum appeared normal. Retroflexion was performed in the rectum and small internal hemorrhoids were noted. Patient tolerated the procedure well. Impression: 1. Upper endoscopy revealed mild gastritis but no evidence of esophagitis or peptic ulcer disease 2. Colonoscopy revealed normal-appearing colon from rectum to cecum with no evidence of colitis or colorectal neoplasia. Small internal hemorrhoids Recommendations: Findings of this examination were discussed with the patient as well as his family. He was advised to follow-up with Dr. Giron as scheduled.
[2024-06-05 16:49] VITALS: BP 98/62
[2024-06-05 16:55] VITALS: PULSE 101
== END 2024-06-05 17:21 | disposition home or self-care (01) ==
LOC: ORWHC2ENDO 13:28
PROVIDERS: ATTEND Internal Medicine Gastroenterology
DX: K64.8 Other hemorrhoids (principal); K29.70 Gastritis, unspecified, without bleeding; R68.81 Early satiety; C78.7 Secondary malignant neoplasm of liver and intrahepatic bile duct; G47.33 Obstructive sleep apnea (adult) (pediatric); Z79.899 Other long term (current) drug therapy; Z98.890 Other specified postprocedural states
CPT/HCPCS: 45378; 43235; J2003; J2704

== ENCOUNTER 2024-06-17 12:25 | Emergency (ER) | payer MEDICARE ==
[2024-06-17 12:36] VITALS: TEMP 98.5
--- NOTE | 2024-06-17 13:02 | ED ---
General Adult HPI - General Chief complaint: Altered Mental Status Stated complaint: vision loss, weakness Time Seen by Provider: 06/17/24 12:35 Source: patient, RN notes reviewed, old records reviewed Mode of arrival: ambulatory Limitations: no limitations - History of Present Illness Initial comments: Is a 68-year-old male who presents to the emergency department with a past medical history significant for lung cancer with metastatic disease to the liver and brain. states over the last 3 days the patient has been declining significantly to the point where now he is not even responding to her and his blood pressure is low and his primary medical care doctor saw him today and wanted him to come to the emergency department. states he does not want to be on a ventilator and does not want CPR. Patient has not had any fever or chills lately. Patient has had no nausea vomiting diarrhea. - Related Data Home Medications Medication Instructions Recorded Confirmed Furosemide [Lasix] 20 mg PO DAILY 06/04/24 06/05/24 Pantoprazole Sodium [Protonix] 20 mg PO BID 06/04/24 06/05/24 Tamsulosin HCl [Flomax] 0.4 mg PO DAILY 06/04/24 06/05/24 predniSONE [Deltasone] 20 mg PO DAILY 06/04/24 06/05/24 Allergies Allergy/AdvReac Type Severity Reaction Status Date / Time pollen extracts Allergy Unknown Verified 06/17/24 12:36 Review of Systems ROS Statement: Those systems with pertinent positive or pertinent negative responses have been documented in the HPI. ROS Other: All systems not noted in ROS Statement are negative. Past Medical History Past Medical History: Cancer, Musculoskeletal Disorder, Sleep Apnea/CPAP/BIPAP Additional Past Medical History / Comment(s): CHRONIC BACK PAIN, history of hernia, brain, lung and liver lesions Mar 2024. currently on radiation. History of Any Multi-Drug Resistant Organisms: None Reported Past Surgical History: Hernia Repair, Orthopedic Surgery Additional Past Surgical History / Comment(s): COLONOSCOPY, RIGHT KNEE ARTHROSCOPY, ABDOMINAL HERNIA REPAIR with mesh Past Anesthesia/Blood Transfusion Reactions: No Reported Reaction Past Psychological History: No Psychological Hx Reported Smoking Status: Former smoker Past Alcohol Use History: None Reported Past Drug Use History: None Reported - Past Family History Mother Family Medical History: No Reported History General Exam - General Exam Comments Initial Comments: GENERAL: Patient is well-developed and well-nourished. Patient is nontoxic and well- hydrated and is in mild distress. ENT: Neck is soft and supple. No significant lymphadenopathy is noted. Oropharynx is clear. Moist mucous membranes. Neck has full range of motion without eliciting any pain. EYES: The sclera were anicteric and conjunctiva were pink and moist. Extraocular movements were intact and pupils were equal round and reactive to light. Eyelids were unremarkable. PULMONARY: Unlabored respirations. Good breath sounds bilaterally. CARDIOVASCULAR: There is a regular rate and rhythm without any murmurs gallops or rubs. ABDOMEN: Soft and nontender with normal bowel sounds. SKIN: Skin is clear with no lesions or rashes and otherwise unremarkable. NEUROLOGIC: Patient is alert and not oriented. Cranial nerves II through XII are grossly intact. Motor and sensory are also intact. Normal speech, volume and content. Symmetrical smile. MUSCULOSKELETAL: Normal extremities with adequate strength and full range of motion. LYMPHATICS: No significant lymphadenopathy is noted PSYCHIATRIC: Normal psychiatric evaluation. Limitations: no limitations Course Vital Signs 06/17/24 06/17/24 06/17/24 12:33 13:12 13:38 Temperature 98.5 F Pulse Rate 102 H 101 H 89 Respiratory 24 22 20 Rate Blood Pressure 72/48 81/56 94/64 O2 Sat by Pulse 99 95 97 Oximetry 06/17/24 06/17/24 06/17/24 14:00 14:30 15:00 Temperature Pulse Rate 93 95 95 Respiratory 26 H 23 20 Rate Blood Pressure 91/61 97/59 97/68 O2 Sat by Pulse 93 L 95 93 L Oximetry 06/17/24 06/17/24 06/17/24 15:30 16:10 17:11 Temperature Pulse Rate 84 90 96 Respiratory 16 20 20 Rate Blood Pressure 89/61 85/63 85/65 O2 Sat by Pulse 97 97 94 L Oximetry Medical Decision Making - Medical Decision Making EKG is interpreted by myself but EKG shows sinus tachycardia at 101 bpm VA interval is 125 QRS is 85 QT interval is 312 QTc is 370. Patient's EKG shows no ST segment elevation or depression Was pt. sent in by a medical professional or institution (, PA, [employer], urgent care, hospital, or detention...) When possible be specific @ -No Did you speak to anyone other than the patient for history (EMS, parent, family, police, friend...)? What history was obtained from this source @ -No Did you review nursing and triage notes (agree or disagree)? Why? @ -I reviewed and agree with nursing and triage notes Were old charts reviewed (outside hosp., previous admission, EMS record, old EKG, old radiological studies, urgent care reports/EKG's, detention records)? Report findings @ -No old charts were reviewed Differential Diagnosis? @ -Differential Altered Mental Status: Hypoglycemia, DKA, hypercapnia, ETOH, overdose, CO poisoning, trauma, myxedema coma, HTN encephalopathy, infection, encephalitis, psychosis, intercranial hemorrhage, hepatic encephalopathy, meningitis, CVA, this is not meant to be an all-inclusive list EKG interpreted by me (3pts min.). @ -As above X-rays interpreted by me (1pt min.). @ -X-ray showed no acute abnormality CT interpreted by me (1pt min.). @ -CT of the brain showed no acute normality U/S interpreted by me (1pt. min.). @ -None done What testing was considered but not performed or refused? (CT, X-rays, U/S, labs)? Why? @ -None What meds were considered but not given or refused? Why? @ -None Did you discuss the management of the patient with other professionals (professionals i.e. , PA, [employer], lab, RT, psych nurse, pediatric social worker, superintendent horticulture, teacher, articulation officer, case maker)? Give summary @ -Hospitalist came down and made arrangements for the patient to go home with a hospice patient Was smoking cessation discussed for >3mins.? @ -No Was critical care preformed (if so, how long)? @ -No Were there social determinants of health that impacted care today? How? (Homelessness, low income, unemployed, alcoholism, drug addiction, transportation, low edu. Level, literacy, decrease access to med. care, penitentiary, rehab)? @ -No Was there de-escalation of care discussed even if they declined (Discuss DNR or withdrawal of care, Hospice)? DNR status @ -No What co-morbidities impacted this encounter? (DM, HTN, Smoking, COPD, CAD, Cancer, CVA, ARF, Chemo, Hep., AIDS, mental health diagnosis, sleep apnea, morbid obesity)? @ -None Was patient admitted / discharged? Hospital course, mention meds given and route, prescriptions, significant lab abnormalities, going to OR and other pertinent info. @ - did not want the patient to be intubated or have CPR. eventually agreed to hospice care at home so patient will be discharged to go home for hospice care Undiagnosed new problem with uncertain prognosis? @ -No Drug Therapy requiring intensive monitoring for toxicity (Heparin, Nitro, Insu john, Cardizem)? @ -No Were any procedures done? @ -No Diagnosis/symptom? @ -Altered mental status Acute, or Chronic, or Acute on Chronic? @ -Acute Uncomplicated (without systemic symptoms) or Complicated (systemic symptoms)? @ -Complicated Side effects of treatment? @ -No Exacerbation, Progression, or Severe Exacerbation? @ -Started Poses a threat to life or bodily function? How? (Chest pain, [place], [place], pneumonia, PE, COPD, DKA, ARF, appy, cholecystitis, CVA, Diverticulitis, Homicidal, Suicidal, threat to staff... and all critical care pts) @ -No Diagnosis/symptom? @ -Hospice Acute, or Chronic, or Acute on Chronic? @ -No Uncomplicated (without systemic symptoms) or Complicated (systemic symptoms)? @ -Uncomplicated Side effects of treatment? @ -None Exacerbation, Progression, or Severe Exacerbation] @ -No Poses a threat to life or bodily function? @ -No - Lab Data Result diagrams: 06/17/24 13:00 06/17/24 13:00 Lab Results 06/17/24 06/17/24 06/17/24 Range/Units 13:00 13:00 13:00 WBC 48.61 H (4.50-10.00) 10*3/uL RBC 3.75 L (4.40-5.60) 10*6/uL Hgb 10.1 L (13.0-17.0) g/dL Hct 29.8 L (39.6-50.0) % MCV 79.5 L (80.0-97.0) fL MCH 26.9 L (27.0-32.0) pg MCHC 33.9 (32.0-37.0) g/dL Plt Count 253 (140-440) 10*3/uL MPV 10.7 (9.5-12.2) fL Immature Gran % (Auto) 3.8 % Neutrophils % (Manual) 94 % Band Neuts % (Manual) 2 % Lymphocytes % (Manual) 3 % Monocytes % (Manual) 2 % Immature Gran # 1.84 H (0.00-0.04) 10*3/uL Neutrophils # (Manual) 46.66 H (1.3-7.7) k/uL Lymphocytes # (Manual) 1.46 (1.0-4.8) k/uL Monocytes # (Manual) 0.97 (0-1.0) k/uL Nucleated RBCs 0 (0-0) /100 WBC Manual Slide Review Performed Poikilocytosis (manual Present Anisocytosis (manual) Present Crenated Cell Present Fragmented RBCs Present PT 14.0 H (10.0-12.5) sec INR 1.3 H (<1.2) APTT 22.9 (22.0-30.0) sec Sodium 127 L (137-145) mmol/L Potassium 4.9 (3.5-5.1) mmol/L Chloride 93 L (98-107) mmol/L Carbon Dioxide 18 L (22-30) mmol/L Anion Gap 16 mmol/L BUN 70 H (9-20) mg/dL Creatinine 1.45 H (0.66-1.25) mg/dL Est GFR (CKD-EPI)AfAm 57 (>60 ml/min/1.73 sqM) Est GFR (CKD-EPI)NonAf 50 (>60 ml/min/1.73 sqM) Glucose 115 H (74-99) mg/dL Calcium 8.7 (8.4-10.2) mg/dL Total Bilirubin 2.3 H (0.2-1.3) mg/dL AST 145 H (17-59) U/L ALT 45 (4-49) U/L Alkaline Phosphatase 633 H (38-126) U/L Troponin I (0.000-0.034) ng/mL Total Protein 5.8 L (6.3-8.2) g/dL Albumin 2.5 L (3.5-5.0) g/dL 06/17/24 Range/Units 13:00 WBC (4.50-10.00) 10*3/uL RBC (4.40-5.60) 10*6/uL Hgb (13.0-17.0) g/dL Hct (39.6-50.0) % MCV (80.0-97.0) fL MCH (27.0-32.0) pg MCHC (32.0-37.0) g/dL Plt Count (140-440) 10*3/uL MPV (9.5-12.2) fL Immature Gran % (Auto) % Neutrophils % (Manual) % Band Neuts % (Manual) % Lymphocytes % (Manual) % Monocytes % (Manual) % Immature Gran # (0.00-0.04) 10*3/uL Neutrophils # (Manual) (1.3-7.7) k/uL Lymphocytes # (Manual) (1.0-4.8) k/uL Monocytes # (Manual) (0-1.0) k/uL Nucleated RBCs (0-0) /100 WBC Manual Slide Review Poikilocytosis (manual Anisocytosis (manual) Crenated Cell Fragmented RBCs PT (10.0-12.5) sec INR (<1.2) APTT (22.0-30.0) sec Sodium (137-145) mmol/L Potassium (3.5-5.1) mmol/L Chloride (98-107) mmol/L Carbon Dioxide (22-30) mmol/L Anion Gap mmol/L BUN (9-20) mg/dL Creatinine (0.66-1.25) mg/dL Est GFR (CKD-EPI)AfAm (>60 ml/min/1.73 sqM) Est GFR (CKD-EPI)NonAf (>60 ml/min/1.73 sqM) Glucose (74-99) mg/dL Calcium (8.4-10.2) mg/dL Total Bilirubin (0.2-1.3) mg/dL AST (17-59) U/L ALT (4-49) U/L Alkaline Phosphatase (38-126) U/L Troponin I <0.012 (0.000-0.034) ng/mL Total Protein (6.3-8.2) g/dL Albumin (3.5-5.0) g/dL Disposition Clinical Impression: Altered mental status, Hospice care Disposition: HOME SELF-CARE Is patient prescribed a controlled substance at d/c from ED?: No Referrals: Jagdish Dolan MD [Primary Care Provider] - 1-2 days Time of Disposition: 17:41
[2024-06-17] MEDS: SODIUM CHLORIDE 0.9% 1,000 ML IV ONE ×2 (13:10→13:12)
[2024-06-17 13:24] LABS: INR 1.3 (<1.2); Partial Thromboplastin Time 22.9 sec (22.0-30.0)
[2024-06-17 13:31] LABS: ALT 45 U/L (4-49); AST 145 U/L (17-59); African American GFR (CKD) 57 (>60 ml/min/1.73 sqM); Albumin 2.5 g/dL (3.5-5.0); Alkaline Phosphatase 633 U/L (38-126); Anion Gap 16 mmol/L; Blood Urea Nitrogen 70 mg/dL (9-20); Calcium 8.7 mg/dL (8.4-10.2); Carbon Dioxide 18 mmol/L (22-30); Chloride 93 mmol/L (98-107); Glucose 115 mg/dL (74-99); Non-African American GFR(CKD) 50 (>60 ml/min/1.73 sqM); Potassium 4.9 mmol/L (3.5-5.1); Sodium 127 mmol/L (137-145); Total Bilirubin 2.3 mg/dL (0.2-1.3); Total Protein 5.8 g/dL (6.3-8.2)
--- NOTE | 2024-06-17 13:34 | CT ---
EXAMINATION TYPE: CT brain wo con DATE OF EXAM: 06/17/2024 COMPARISON: None CLINICAL INDICATION: Male, 68 years old with history of altered mental status; PH, AMS CT DLP: 1213.9 mGycm Automated exposure control for dose reduction was used. Findings: The ventricles, basal cisterns and sulci over the convexities are within normal limits for the patien t's age and there is no mass effect or shift of midline structures. No abnormal density is seen throughout the brain parenchyma and there is no acute intra or extra-axia l hemorrhage. The posterior fossa including the brainstem, fourth ventricle and cerebellar pontine angles appear no rmal. Intraorbital contents appear normal and symmetric. Visualized paranasal sinuses and mastoid air cells are well aerated. The calvarium is intact. IMPRESSION: 1. No acute bleed or mass effect. 2. Mild age-appropriate atrophy. [facility], Workstation: [facility], 06/17/2024 1:32 PM
[2024-06-17 13:38] LABS: HCT 29.8 % (39.6-50.0); HGB 10.1 g/dL (13.0-17.0); MCH 26.9 pg (27.0-32.0); MCHC 33.9 g/dL (32.0-37.0); MCV 79.5 fL (80.0-97.0); Mean Platelet Volume 10.7 fL (9.5-12.2); Platelet Count 253 10*3/uL (140-440); RBC 3.75 10*6/uL (4.40-5.60); RDW 20.5 % (11.5-14.5); WBC 48.61 10*3/uL (4.50-10.00)
--- NOTE | 2024-06-17 13:46 | XR ---
EXAMINATION TYPE: XR chest 2V DATE OF EXAM: 06/17/2024 1:33 PM COMPARISON: PET CT 04/24/2024, CT chest abdomen and pelvis 03/27/2024 TECHNIQUE: XR chest 2V Frontal and lateral views of the chest. CLINICAL INDICATION:Male, 68 years old with history of altered mental status; FINDINGS: Lungs/Pleura: No pleural effusion. Hyperinflation. Left apical pulmonary mass is better appreciated o n prior PET/CT. Possible trace left pneumothorax along the medial aspect of the left upper lung versu s skin fold. Pulmonary vascularity: Unremarkable. Heart/mediastinum: Cardiomediastinal silhouette is unremarkable. Musculoskeletal: No acute osseous pathology. Bilateral AC joint arthropathy. IMPRESSION: 1. Possible trace left pneumothorax along the medial aspect of the left upper lung versus skinfold. Consider further evaluation with CT chest. 2. Left apical pulmonary mass is better appreciated on prior PET/CT. 3. COPD changes. [facility], , 06/17/2024 1:43 PM
[2024-06-17 13:55] LABS: Band Neutrophils % 2 %; Lymphocytes # (M) 1.46 k/uL (1.0-4.8); Monocytes # (M) 0.97 k/uL (0-1.0); Neutrophils # (M) 46.66 k/uL (1.3-7.7); Neutrophils % (M) 94 %; Nucleated Red Blood Cells 0 /100 WBC (0-0); Total Cells Counted 200
[2024-06-17 13:58] LABS: Anisocytosis (M) Present; Poikilocytosis (M) Present
[2024-06-17 14:00] LABS: Crenated RBC Present; RBC Fragments Present
[2024-06-17] MEDS: KETOROLAC 15 MG/ML 1 ML VIAL IVP STA (17:16)
[2024-06-17] MEDS: ARTIFICIAL TEARS-HYPROMELLOSE DROPS 15 ML BTL BOTH EYES PRN (17:17)
[2024-06-17 19:47] VITALS: BP 90/63; PULSE 97; RESP 14
== END 2024-06-17 19:47 | disposition home or self-care (01) ==
LOC: EC 12:25
DX: R41.82 Altered mental status, unspecified (principal); C78.7 Secondary malignant neoplasm of liver and intrahepatic bile duct; C79.31 Secondary malignant neoplasm of brain; Z51.5 Encounter for palliative care; Z87.891 Personal history of nicotine dependence; Z91.048 Other nonmedicinal substance allergy status
CPT/HCPCS: 36415; 93005; 80053; 84484; 85025; 85610; 85730; 71046; 70450; 99285; 96374; 96361; J1885